=== PATIENT | male | born 1980 | race Hispanic/Latino ===

== ENCOUNTER 2023-07-30 21:22 | Emergency (ER) | payer BC ==
[~2023-07-30] VITALS: Ht 180.3 cm; Wt 115.2 kg
[2023-07-30 22:05] VITALS: BP 137/80; PULSE 93; RESP 20
== END 2023-07-30 23:38 | disposition home or self-care (01) ==
LOC: EDH 21:22
DX: H11.32 Conjunctival hemorrhage, left eye (principal); I10 Essential (primary) hypertension
CPT/HCPCS: 99282